=== PATIENT | female | born 1980 | race Caucasian/White ===

== ENCOUNTER 2016-03-04 12:50 | Outpatient (RCR) | payer OTHER ==
--- OUTSIDE RECORDS SUMMARY | 2015-12-19 13:04 | XMS REPORT | Continuity of Care Document ---
Author Author [facility] Organization [facility] Address Unknown Phone Unavailable Care Team Providers Care Stock Associate Name Role Phone Tor Thurman PCP [phone] Source Comments Some departments are not documenting in the electronic medical record. If you do not see the information that you expected, contact Release of Information in the Health Information Management department at [phone] for further assistance in locating additional records.[facility] Active Allergies and Adverse Reactions Allergen Noted Date Severity Reactions Comments Penicillins 04/25/2015 Low UNKNOWN Current Medications Prescription Sig. Disp. Refills Start End Date Status Date levothyroxine (SYNTHROID) Take 100 mcg by mouth Active 100 mcg tablet daily. Active Problems Problem Noted Date GBM (glioblastoma multiforme) (HCC) 05/15/2015 Overview: 05/15/2015 Patient presented to OSH with severe headache over about 4 days. MRI showed large enhancing bilobed mass. She had had some disorientation over about 2 months which she thought was her thyroid medication. She has had GTR of a GBM and is here to discuss therapy. We discussed therapy, natural history of brain tumors, treatment options, toxicity and prognosis. She will get her care from Dr. Su and return if there are any questions or progression. I have recommended STUPP regimen with 1 year of temodar. L ast Assessment & Plan: We have reviewed the MRI--she has no symptoms and given the features and timing this most likely represents pseudo-progression related to her prior radiation/treatment and we have recommended proceeding with her planned maintenance Temodar. We have discussed with Penny and her and reviewed the images with her. They verbalize understanding and are in agreeement. Would recommend short interval follow up MRI head. The above plan was discussed and reviewed with the patient/family and they have received appropriate instructions and education and verbalize good understanding. Hypothyroidism (acquired) 04/26/2015 Graves disease 04/26/2015 H/O: hysterectomy 04/26/2015 Resolved Problems Problem Noted Date Resolved Date Cerebral edema 04/26/2015 05/21/2015 Midline shift of brain 04/26/2015 05/21/2015 Brain mass 04/25/2015 05/21/2015 Most Recent Encounters Date Type Specialty Providers Description 09/19/2015 Hospital Radiology Lorenzo Whitman MD Encounter 09/19/2015 Hospital Radiology Lorenzo Whitman MD Encounter 09/19/2015 Ancillary Oncology Lorenzo Whitman MD GBM ( glioblastoma Orders multiforme) (HCC) (Primary Dx) 09/18/2015 Screening Form Social History Tobacco Use Types Packs/Day Years Used Date Current Every Day Smoker 15 Quit: 11/23/2013 Smokeless Tobacco: Current User Alcohol Use Drinks/Week oz/Week Comments No Last Filed Vital Signs Vital Sign Reading Time Taken Blood Pressure 147/92 08/28/2015 1:08 PM CDT Pulse 99 08/28/2015 1:08 PM CDT Temperature 36.9 C (98.4 F) 08/28/2015 1:08 PM CDT Respiratory Rate 20 08/28/2015 1:08 PM CDT Height 1.626 m (5' 4") 08/28/2015 1:08 PM CDT Weight 65.59 kg (144 lb 9.6 oz) 08/28/2015 1:08 PM CDT Body Mass Index 24.81 08/28/2015 1:08 PM CDT Oxygen Saturation 97% 08/28/2015 1:08 PM CDT Plan of Care Health Maintenance Due Date Last Done Comments Physical (Comprehensive) 1985 Exam Pertussis Vaccine 1989 Tetanus Vaccine 1995 Cervical Cancer Screening 1999 Influenza Vaccine 11/14/2015 Results from Last 3 Months MRI BRAIN WO/W CONTRAST & PERFUSION (09/19/2015 3:29 PM) Impressions 1. Unchanged right parietal resection cavity with surrounding FLAIR hyperintensities and ill-defined linear enhancement about the resection cavity and right splenium of the corpus callosum. No new signal abnormality or enhancement. 2. No elevated cerebral blood volume within the right parietal region of interest. Leading consideration of the enhancing soft tissue is treatment- related effects as opposed to true tumor progression. Close continued follow-up is suggested. Finalized by HOSSEIN SWANSON M.D. on 09/19/2015 4:33 PM. Dictated by HOSSEIN SWANSON M.D. on 09/19/2015 4:23 PM. Narrative MRI BRAIN WO/W CONTRAST & PERFUSION Clinical indication: f/u glioblastoma. Technique: Pre and postcontrast MRI of the brain was performed. Additional dynamic susceptibility contrast perfusion imaging was performed with postprocessing performed on a separate workstation. Comparison: Outside MRI from August 13, 2015 Findings: There is redemonstration of prior right parietal mass resection cavity with ill- defined linear enhancement about the resection cavity as well as within the right splenium of the corpus callosum. Unchanged from the prior examination. The surrounding FLAIR hyperintensities are also unchanged within this region. No new parietal signal abnormality or mass effect is identified. There is no evidence recent ischemic infarct or intracranial hemorrhage. The major intracranial flow voids are preserved. Globes and orbits appear normal. The paranasal sinuses and mastoid air cells are clear. Perfusion imaging shows no elevated cerebral blood volume within the region of the surgical cavity or enhancement. Procedure Note Interface, Radiant Results - [facility] Sep 19, 2015 4:36 PM CDT MRI BRAIN WO/W CONTRAST & PERFUSION Clinical indication: f/u glioblastoma. Technique: Pre and postcontrast MRI of the brain was performed. Additional dynamic susceptibility contrast perfusion imaging was performed with postprocessing performed on a separate workstation. Comparison: Outside MRI from August 13, 2015 Findings: There is redemonstration of prior right parietal mass resection cavity with ill- defined linear enhancement about the resection cavity as well as within the right splenium of the corpus callosum. Unchanged from the prior examination. The surrounding FLAIR hyperintensities are also unchanged within this region. No new parietal signal abnormality or mass effect is identified. There is no evidence recent ischemic infarct or intracranial hemorrhage. The major intracranial flow voids are preserved. Globes and orbits appear normal. The paranasal sinuses and mastoid air cells are clear. Perfusion imaging shows no elevated cerebral blood volume within the region of the surgical cavity or enhancement. IMPRESSION 1. Unchanged right parietal resection cavity with surrounding FLAIR hyperintensities and ill-defined linear enhancement about the resection cavity and right splenium of the corpus callosum. No new signal abnormality or enhancement. 2. No elevated cerebral blood volume within the right parietal region of interest. Leading consideration of the enhancing soft tissue is treatment- related effects as opposed to true tumor progression. Close continued follow-up is suggested. Finalized by HOSSENI SWANSON M.D. on 09/19/2015 4:33 PM. Dictated by HOSSEIN SWANSON M.D. on 09/19/2015 4:23 PM.
[2015-12-19 13:09] LABS: BASOPHILS % (AUTO) 0 % (0-10); EOSINOPHILS # (AUTO) 0.2 10^3/uL (0.0-0.3); EOSINOPHILS % (AUTO) 3 % (0-10); LYMPHOCYTES # (AUTO) 1.5 X 10^3 (1.0-4.0); LYMPHOCYTES % (AUTO) 21 % (12-44); MEAN CORPUSCULAR HEMOGLOBIN 29 PG (25-34); MEAN CORPUSCULAR HGB CONC 35 G/DL (32-36); MEAN CORPUSCULAR VOLUME 83 FL (80-99); MEAN PLATELET VOLUME 9.9 FL (7.4-10.4); MONOCYTES # (AUTO) 0.5 X 10^3 (0.0-1.0); MONOCYTES % (AUTO) 6 % (0-12); NEUTROPHILS % (AUTO) 69 % (42-75); PLATELET COUNT 231 10^3/uL (130-400); RED BLOOD COUNT 4.84 10^6/uL (4.35-5.85); RED CELL DISTRIBUTION WIDTH 14.6 % (10.0-14.5); WHITE BLOOD COUNT 7.2 10^3/uL (4.3-11.0)
[2015-12-19 13:54] LABS: ANION GAP 12 MMOL/L (5-14); BLOOD UREA NITROGEN 9 MG/DL (7-18); BUN/CREATININE RATIO 11; CALCIUM 9.5 MG/DL (8.5-10.1); CARBON DIOXIDE 21 MMOL/L (21-32); CHLORIDE 104 MMOL/L (98-107); CREATININE SERUM 0.83 MG/DL (0.60-1.30); GFR ESTIMATED > 60; GLUCOSE 179 MG/DL (70-105); POTASSIUM 4.2 MMOL/L (3.6-5.0); SODIUM 137 MMOL/L (135-145)
[2016-01-02 14:55] LABS: BASOPHILS # (AUTO) 0.1 10^3/uL (0.0-0.1); BASOPHILS % (AUTO) 1 % (0-10); EOSINOPHILS # (AUTO) 0.3 10^3/uL (0.0-0.3); EOSINOPHILS % (AUTO) 4 % (0-10); LYMPHOCYTES # (AUTO) 1.8 X 10^3 (1.0-4.0); LYMPHOCYTES % (AUTO) 25 % (12-44); MEAN CORPUSCULAR HEMOGLOBIN 28 PG (25-34); MEAN CORPUSCULAR HGB CONC 34 G/DL (32-36); MEAN CORPUSCULAR VOLUME 83 FL (80-99); MEAN PLATELET VOLUME 9.9 FL (7.4-10.4); MONOCYTES # (AUTO) 0.4 X 10^3 (0.0-1.0); MONOCYTES % (AUTO) 6 % (0-12); NEUTROPHILS # (AUTO) 4.6 X 10^3 (1.8-7.8); NEUTROPHILS % (AUTO) 65 % (42-75); PLATELET COUNT 240 10^3/uL (130-400); RED BLOOD COUNT 4.82 10^6/uL (4.35-5.85); RED CELL DISTRIBUTION WIDTH 14.6 % (10.0-14.5); WHITE BLOOD COUNT 7.1 10^3/uL (4.3-11.0)
[2016-01-02 15:19] LABS: ALANINE AMINOTRANSFERASE 19 U/L (0-55); ALBUMIN 4.4 G/DL (3.2-4.5); ANION GAP 10 MMOL/L (5-14); ASPARTATE AMINO TRANSFERASE 19 U/L (5-34); BILIRUBIN,TOTAL 0.3 MG/DL (0.1-1.0); BLOOD UREA NITROGEN 6 MG/DL (7-18); BUN/CREATININE RATIO 7; CALCIUM 9.1 MG/DL (8.5-10.1); CARBON DIOXIDE 26 MMOL/L (21-32); CHLORIDE 103 MMOL/L (98-107); CREATININE SERUM 0.84 MG/DL (0.60-1.30); GFR ESTIMATED > 60; GLUCOSE 132 MG/DL (70-105); POTASSIUM 3.9 MMOL/L (3.6-5.0); SODIUM 139 MMOL/L (135-145); TOTAL PROTEIN 6.8 G/DL (6.4-8.2)
[2016-01-29 10:06] LABS: BASOPHILS # (AUTO) 0.1 10^3/uL (0.0-0.1); BASOPHILS % (AUTO) 1 % (0-10); EOSINOPHILS # (AUTO) 0.3 10^3/uL (0.0-0.3); EOSINOPHILS % (AUTO) 4 % (0-10); LYMPHOCYTES # (AUTO) 1.7 X 10^3 (1.0-4.0); LYMPHOCYTES % (AUTO) 29 % (12-44); MEAN CORPUSCULAR HEMOGLOBIN 30 PG (25-34); MEAN CORPUSCULAR HGB CONC 35 G/DL (32-36); MEAN CORPUSCULAR VOLUME 85 FL (80-99); MEAN PLATELET VOLUME 9.5 FL (7.4-10.4); MONOCYTES # (AUTO) 0.4 X 10^3 (0.0-1.0); MONOCYTES % (AUTO) 7 % (0-12); NEUTROPHILS # (AUTO) 3.6 X 10^3 (1.8-7.8); NEUTROPHILS % (AUTO) 59 % (42-75); PLATELET COUNT 270 10^3/uL (130-400); RED BLOOD COUNT 4.78 10^6/uL (4.35-5.85); RED CELL DISTRIBUTION WIDTH 14.8 % (10.0-14.5)
[2016-01-29 10:55] LABS: ANION GAP 10 MMOL/L (5-14); BLOOD UREA NITROGEN 9 MG/DL (7-18); BUN/CREATININE RATIO 11; CARBON DIOXIDE 26 MMOL/L (21-32); CHLORIDE 103 MMOL/L (98-107); CREATININE SERUM 0.83 MG/DL (0.60-1.30); POTASSIUM 4.2 MMOL/L (3.6-5.0); SODIUM 139 MMOL/L (135-145)
[2016-01-29 10:56] LABS: ALANINE AMINOTRANSFERASE 18 U/L (0-55); ALBUMIN 4.5 G/DL (3.2-4.5); ASPARTATE AMINO TRANSFERASE 21 U/L (5-34); BILIRUBIN,TOTAL 0.4 MG/DL (0.1-1.0); CALCIUM 9.7 MG/DL (8.5-10.1); GFR ESTIMATED > 60; GLUCOSE 86 MG/DL (70-105); LACTATE DEHYDROGENASE 182 U/L (125-220); TOTAL PROTEIN 6.9 G/DL (6.4-8.2)
[~2016-03-04 12:50] MED LIST: ACHYD1T PO; DCS100C PO; IBP800T PO; LEVO100T7 PO
[2016-03-04 13:19] LABS: BASOPHILS % (AUTO) 0 % (0-10); EOSINOPHILS # (AUTO) 0.2 10^3/uL (0.0-0.3); EOSINOPHILS % (AUTO) 2 % (0-10); LYMPHOCYTES # (AUTO) 1.6 X 10^3 (1.0-4.0); LYMPHOCYTES % (AUTO) 24 % (12-44); MEAN CORPUSCULAR HEMOGLOBIN 30 PG (25-34); MEAN CORPUSCULAR HGB CONC 34 G/DL (32-36); MEAN CORPUSCULAR VOLUME 88 FL (80-99); MEAN PLATELET VOLUME 9.4 FL (7.4-10.4); MONOCYTES # (AUTO) 0.4 X 10^3 (0.0-1.0); MONOCYTES % (AUTO) 6 % (0-12); NEUTROPHILS # (AUTO) 4.6 X 10^3 (1.8-7.8); NEUTROPHILS % (AUTO) 68 % (42-75); PLATELET COUNT 258 10^3/uL (130-400); RED BLOOD COUNT 4.09 10^6/uL (4.35-5.85); RED CELL DISTRIBUTION WIDTH 13.7 % (10.0-14.5); WHITE BLOOD COUNT 6.9 10^3/uL (4.3-11.0)
[2016-03-04 13:56] LABS: ALANINE AMINOTRANSFERASE 18 U/L (0-55); ALBUMIN 4.1 G/DL (3.2-4.5); ANION GAP 7 MMOL/L (5-14); ASPARTATE AMINO TRANSFERASE 21 U/L (5-34); BILIRUBIN,TOTAL 0.3 MG/DL (0.1-1.0); BLOOD UREA NITROGEN 8 MG/DL (7-18); BUN/CREATININE RATIO 11; CALCIUM 8.9 MG/DL (8.5-10.1); CARBON DIOXIDE 27 MMOL/L (21-32); CHLORIDE 104 MMOL/L (98-107); CREATININE SERUM 0.73 MG/DL (0.60-1.30); GFR ESTIMATED > 60; GLUCOSE 102 MG/DL (70-105); POTASSIUM 3.7 MMOL/L (3.6-5.0); SODIUM 138 MMOL/L (135-145); TOTAL PROTEIN 6.6 G/DL (6.4-8.2)
== END 2016-03-18 | disposition home or self-care (01) ==
LOC: ONC 12:50
PROVIDERS: ATTEND Internal Medicine Hematology & Oncology
DX: C71.3 Malignant neoplasm of parietal lobe (principal); E03.9 Hypothyroidism, unspecified; F17.210 Nicotine dependence, cigarettes, uncomplicated; Z79.899 Other long term (current) drug therapy
CPT/HCPCS: 36415; 80048; 80053; 83615; 85025; 99213

== ENCOUNTER → 2016-06-03 | Outpatient (CLI) | payer OTHER ==
[~2016-06-03] MED LIST changes: +GADOBUTROL 7.5 MMOL/7.5 ML (GADAVIST) VIAL IV ONE
--- NOTE | 2016-06-03 17:16 | Diagnostic Imaging Report ---
PROCEDURE: MR imaging of the brain with and without contrast. TECHNIQUE: Multiplanar, multisequence MR imaging of the brain was performed with and without contrast. INDICATION: Glioblastoma multiforme status post 2 resections, last one in February 2016. 6 mL of Gadovist is administered intravenously. FINDINGS: There is diffusion restriction seen anterior to the right parietal resection cavity. This is associated with increased soft tissue fullness and T2 and FLAIR signal abnormality. This is associated with postcontrast enhancement with maximum axial dimensions of 3 x 2.1 cm and craniocaudally 2.8 cm. The enhancing lesion extends to the ependymal lining of the right occipital horn and near the right side aspect of the splenium of the corpus callosum. This is concerning for tumor recurrence. There is thickening of the extra-axial soft tissue enhancement along the anterosuperior aspect of the resection cavity also concerning for tumor. There is no hydrocephalus. There is no enhancing lesion in the left hemisphere or in the cerebellum or the brainstem. The pituitary gland is normal in size with no hypothalamic or pineal region mass. Outside study dated 02/14/2016 is obtained and demonstrates smaller nodular areas of enhancement measuring 9 mm anteriorly and 2 x 1.2 cm anteromedially. There is significant enlargement of the areas of enhancement mostly anterior to the resection cavity at this time with minimal enlargement in the medial enhancing component and new extension along the lateral superior aspect, probably dural based, as discussed above is concerning for tumor recurrence. IMPRESSION: Enlarging enhancing lesions with the most prominent component measuring 3 cm located anterior to the resection cavity in the right parietal region suggestive of tumor progression. Dictated by: Dictated on workstation # [id number]
== END ==
LOC: RAD 08:48
PROVIDERS: ATTEND Nurse Practitioner Adult Health
DX: C71.3 Malignant neoplasm of parietal lobe (principal)
CPT/HCPCS: 70553

== ENCOUNTER 2016-06-16 14:06 | Outpatient (RCR) | payer OTHER ==
--- OUTSIDE RECORDS SUMMARY | 2016-03-19 09:01 | XMS REPORT | Continuity of Care Document ---
Author Author [facility] Organization [facility] Address Unknown Phone Unavailable Care Team Providers Care [employer] Manager Name Role Phone Tor Thurman PCP [phone] Source Comments Some departments are not documenting in the electronic medical record. If you do not see the information that you expected, contact Release of Information in the Health Information Management department at [phone] for further assistance in locating additional records.[facility] Active Allergies and Adverse Reactions No Known Allergies Current Medications Prescription Sig. Disp. Refills Start End Date Status Date levothyroxine (SYNTHROID) Take 88 mcg by mouth Active 88 mcg tablet daily 30 minutes before breakfast. acetaminophen (TYLENOL) Take 2 Tabs by mouth 0 02/15/20 Active 325 mg tablet every 4 hours as needed. 16 senna/docusate Take 1 Tab by mouth twice 0 02/15/20 Active (SENOKOT-S) 8.6/50 mg daily. As needed for 16 tablet constipation cetirizine (ZYRTEC) 10 mg Take 10 mg by mouth daily 02/24/20 Discontin tablet as needed for Allergy 16 ued symptoms. oxyCODONE (ROXICODONE, Take 1-2 Tabs by mouth 60 Tab 0 02/15/2003/03 Discontin OXY-IR) 5 mg tablet every 4 hours as needed 16 16 ued Earliest Fill Date: 02/15/16 levETIRAcetam (KEPPRA) Take 1 Tab by mouth twice 26 Tab 0 02/15/20 02/28/20 500 mg tablet daily for 13 days. 16 16 dexamethasone (DECADRON) Take with food. Taper 32 Tab 0 02/15/2003/03 Discontin 2 mg tablet schedule: 2 tabs every 6 16 16 ued hours thru today, then 2 tab every 8 hours x 2 days, then 2 tabs every 12 hours x 2 days, then 1 tab every 12 hours x 2 days, then 1/2 tab every 12 hours x 2 days then stop. Active Problems Problem Noted Date Cerebral edema (HCC) 02/18/2016 Brain compression (HCC) 02/18/2016 GBM (glioblastoma multiforme) (HCC) 02/15/2016 GBM (glioblastoma multiforme) (HCC) 05/15/2015 Overview: 05/15/2015 [...] STUPP regimen with 1 year of temodar. 02/04/2016 When seen in September she had MRI consistent with pseudoprogression. Has had progression of the enhancement so surgery is planned. If recurrent tumor is found she will go on Tocagen. If not she will stay on temodar. She is asymptomatic. KPS 100 although she had not returned to work since original diagnosis. She is more than 6 months since xrt. 03/03/2016 She went on Tocagen trial after her resection. She was randomized to control arm and that has to be done here. In light of the distance and it will be standard of care she has elected to go off study. I reviewed for them the standard therapy options and the toxicities. She will see Dr. Chirag Zamorano ast Assessment & Plan: We have reviewed [...] Recent Encounters Date Type Specialty Providers Description 03/03/2016 Office Visit Oncology Pamela Sams MD GBM (glioblastoma multiforme) (HCC) (Primary Dx) 03/03/2016 Office Visit Neurosurgery Faizan Humphreys MD GBM ( glioblastoma multiforme) (HCC) (Primary Dx); Cerebral edema (HCC); Brain compression (HCC) 03/03/2016 Documentation Oncology Pamela aSms MD 02/24/2016 Office Visit Radiation Therapy Jordan Espino MD GBM ( glioblastoma multiforme) (HCC) (Primary Dx) 02/19/2016 Telephone Oncology Pamela Sams MD Appointment 02/17/2016 Telephone Neurosurgery Yandel Wilks MD Follow-up Phone Call 02/13/2016 Screening Form 02/13/2016 Surgery Yandel Wilks MD RIGHT OCCIPITAL RE-DO CRANIOTOMY FOR RESECTION OF RECURRENT GLIOBLASTOMA MULTIFORME 02/12/2016 [facility] Yandel Wilks MD GBM (glioblastoma - Encounter multiforme) (HCC) 02/15/2016 02/12/2016 [facility] Yandel Wilks MD Glioblastoma (HCC) Encounter 02/12/2016 Screening Form 02/12/2016 Telephone Oncology Pamela Sams MD Research 02/08/2016 [facility] Radiology Yandel Wilks MD Encounter 02/05/2016 Screening Form 02/04/2016 Office Visit Oncology Pamela Sams MD GBM (glioblastoma multiforme) (HCC) (Primary Dx) 02/04/2016 Office Visit Neurosurgery Yandel Wilks MD GBM ( glioblastoma multiforme) (HCC) (Primary Dx) 02/04/2016 PAC Office Anesthesiology Yandel Wilks MD Encounter for blood Visit typing (Primary Dx) 02/04/2016 Documentation Oncology Pamela Sams MD 02/04/2016 Precert Oncology Pamela Sams MD 02/04/2016 Orders Only Oncology Pamela Sams MD GBM (glioblastoma multiforme) (HCC) (Primary Dx) 02/04/2016 Orders Only Neurosurgery Yandel Wilks MD Glioblastoma ( HCC) (Primary Dx) 02/04/2016 Anesthesia Philomena Salmon, Event ENTRY LEVEL PROJECT ENGINEER 02/03/2016 Orders Only Oncology Pamela Sams MD GBM (glioblastoma multiforme) (HCC) (Primary Dx) 01/31/2016 Hospital Yandel Wilks MD Encounter 01/31/2016 Orders Only Dutch Gilma J, ENTRY LEVEL PROJECT ENGINEER 01/30/2016 Telephone Oncology Pamela Sams MD Appointment 01/30/2016 Telephone Oncology Pamela Sams MD Research 01/29/2016 Telephone Oncology Yandel Wilks MD Research 01/29/2016 Prep for Case Neurosurgery Yandel Wliks MD 01/25/2016 Ancillary Radiology Outpatient, Radiologist Diagnosis unknown Orders (Primary Dx) 01/24/2016 Telephone Oncology Pamela Sams MD New Treatment Follow Up 01/23/2016 Hospital Radiology Encounter Social History Tobacco Use Types Packs/Day Years Used Date Current Every Day Smoker Cigarettes 0.5 15 Smokeless Tobacco: Never Used Alcohol Use Drinks/Week oz/Week Comments No Last Filed Vital Signs Vital Sign Reading Time Taken Blood Pressure 117/65 03/03/2016 12:18 PM PHYSICIAN CHIEF OF PATHOLOGY Pulse 81 03/03/2016 12:18 PM PHYSICIAN CHIEF OF PATHOLOGY Temperature 36.7 C (98 F) 03/03/2016 12:18 PM PHYSICIAN CHIEF OF PATHOLOGY Respiratory Rate 16 03/03/2016 12:18 PM PHYSICIAN CHIEF OF PATHOLOGY Height 1.626 m (5' 4.02") 03/03/2016 12:18 PM PHYSICIAN CHIEF OF PATHOLOGY Weight 60.147 kg (132 lb 9.6 oz) 03/03/2016 12:18 PM PHYSICIAN CHIEF OF PATHOLOGY Body Mass Index 22.75 03/03/2016 12:18 PM PHYSICIAN CHIEF OF PATHOLOGY Oxygen Saturation 100% 03/03/2016 12:18 PM PHYSICIAN CHIEF OF PATHOLOGY Plan of Care Health Maintenance Due Date Last Done Comments Physical (Comprehensive) 1985 Exam Pertussis Vaccine 1989 Tetanus Vaccine 1995 Cervical Cancer Screening 1999 Influenza Vaccine 11/14/2015 Procedures from Last 3 Months Procedure Name Priority Date/Time Associated Diagnosis Comments TELEMETRY STRIPS-SCAN 02/18/2016 Results for this 8:30 AM PHYSICIAN CHIEF OF PATHOLOGY procedure are in the results section. RIGHT OCCIPITAL RE-DO 02/13/2016 Glioblastoma (HCC) CRANIOTOMY FOR RESECTION 7:45 AM PHYSICIAN CHIEF OF PATHOLOGY OF RECURRENT GLIOBLASTOMA MULTIFORME Special Needs 01/30- MOVED FROM 02/03 TO 02/12, REQUEST [id number] START, PER CHANGE FORM Sofia SERRANO RN ([id number]) CONSULT IV THERAPY TEAM Routine 02/12/2016 6:23 PM PHYSICIAN CHIEF OF PATHOLOGY Results from Last 3 Months TELEMETRY STRIPS-SCAN (02/18/2016 8:30 AM) Narrative Ordered by an unspecified provider. PATHOLOGY INTEROPERATIVE REPORT SCAN (02/17/2016 4:06 PM) Narrative Ordered by an unspecified provider. BASIC METABOLIC PANEL (02/15/2016 6:07 AM)Only the most recent of 3 results within the time period is included. Component Value Range Sodium 139 137-147 MMOL/L Potassium 3.9 3.5-5.1 MMOL/L Chloride 108 98-110 MMOL/L CO2 23 21-30 MMOL/L Anion Gap 8 3-12 Glucose 117 (H) 70-100 MG/DL Blood Urea Nitrogen 11 7-25 MG/DL Creatinine 0.60 0.4-1.00 MG/DL Calcium 8.8 8.5-10.6 MG/DL eGFR Non >60Comment: >60 mL/min The eGFR is not validated for use in drug dosing adjustments. Continue to use estimated creatinine clearance per dosing reference text. Please contact the Clinical Pharmacist for questions. eGFR >60Comment: >60 mL/min The eGFR is not validated for use in drug dosing adjustments. Continue to use estimated creatinine clearance per dosing reference text. Please contact the Clinical Pharmacist for questions. Specimen Blood CBC AND DIFF (02/15/2016 6:07 AM)Only the most recent of 5 results within the time period is included. Component Value Range White Blood Cells 16.1 (H) 4.5-11.0 K/UL RBC 3.58 (L) 4.0-5.0 M/UL Hemoglobin 10.2 (L) 12.0-15.0 GM/DL Hematocrit 30.8 (L) 36-45 % MCV 86.2 80-100 FL MCH 28.6 26-34 PG MCHC 33.2 32.0-36.0 G/DL RDW 15.1 (H) 11-15 % Platelet Count 159 150-400 K/UL MPV 9.0 7-11 FL Neutrophils 87 (H) 41-77 % Lymphocytes 8 (L) 24-44 % Monocytes 5 4-12 % Eosinophils 0 0-5 % Basophils 0 0-2 % Absolute Neutrophil Count 14.10 (H) 1.8-7.0 K/UL Absolute Lymph Count 1.20 1.0-4.8 K/UL Absolute Monocyte Count 0.70 0-0.80 K/UL Absolute Eosinophil Count 0.00 0-0.45 K/UL Absolute Basophil Count 0.00 0-0.20 K/UL Specimen Blood MRI HEAD WO/W CONTRAST (02/14/2016 12:52 AM)Only the most recent of 3 results within the time period is included. Impressions Interval partial resection of right parieto-occipital mass with residual enhancement along the anterior and medial resection margins. Approved by Ebony Humphreys M.D. on 02/14/2016 9:24 AM By my electronic signature, I attest that I have personally reviewed the images for this examination and formulated the interpretations and opinions expressed in this report Finalized by HOSSEIN SWANSON M.D. on 02/14/2016 5:31 PM. Dictated by Ebony Humphreys M.D. on 02/14/2016 7:19 AM. Narrative EXAM: MRI BRAIN (LIMITED) HISTORY: Tocagen study, please do early as possible after 24 hour from last scan. Glioblastoma status post resection. TECHNIQUE: Multiplanar and multisequence MR imaging of the head was performed with IV contrast. CONTRAST: Multihance COMPARISON: MRI head February 12, 2016 FINDINGS: Interval redo right parieto-occipital craniotomy and further right parieto- occipital mass resection. There is minimal postoperative pneumocephalus with a trace amount of fluid deep to the craniotomy site. There is residual enhancement along the anterior and medial resection margins. No significant change in surrounding vasogenic edema. No midline shift or descending herniation. Persistent mild right maxillary sinus mucosal thickening. Procedure Note Interface, Radiant Results - WedFeb 14, 2016 5:34 PM PHYSICIAN CHIEF OF PATHOLOGY EXAM: MRI BRAIN (LIMITED) HISTORY: Tocagen study, please do early as possible after 24 hour from last scan. Glioblastoma status post resection. TECHNIQUE: Multiplanar and multisequence MR imaging of the head was performed with IV contrast. CONTRAST: Multihance COMPARISON: MRI head February 12, 2016 FINDINGS: Interval redo right parieto-occipital craniotomy and further right parieto- occipital mass resection. There is minimal postoperative pneumocephalus with a trace amount of fluid deep to the craniotomy site. There is residual enhancement along the anterior and medial resection margins. No significant change in surrounding vasogenic edema. No midline shift or descending herniation. Persistent mild right maxillary sinus mucosal thickening. IMPRESSION Interval partial resection of right parieto-occipital mass with residual enhancement along the anterior and medial resection margins. Approved by Ebony Humphreys M.D. on 02/14/2016 9:24 AM By my electronic signature, I attest that I have personally reviewed the images for this examination and formulated the interpretations and opinions expressed in this report Finalized by HOSSEIN SWANSON M.D. on 02/14/2016 5:31 PM. Dictated by Ebony Humphreys M.D. on 02/14/2016 7:19 AM. SURGICAL PATHOLOGY (02/13/2016 11:38 AM) Component Value Range PATHOLOGY REPORT [facility] [email or web address] Macy Tiwari MD, PhD, Director of Anatomic Pathology Department of Pathology and Laboratory Medicine [address] [place] [id number] Surgical Pathology Office: [phone] SURGICAL PATHOLOGY REPORT NAME: PENNY CERDA SURG PATH #: [id number] MR #: [id number] SPECIMEN CLASS: SR BILLING #: [id number] ALT ID #: LOCATION: DISCHARGED DATE OF PROCEDURE: 02/13/2016 AGE: 35 SEX: F DATE RECEIVED: 02/13/2016 : 1980 TIME RECEIVED: 11:38 PHYSICIAN: YANDEL WILKS DATE OF REPORT: 02/17/2016 COPY TO: DATE OF PRINTIN02/17/2016 ################################################## ###################### Final Diagnosis: Right occipital craniotomy for resection of recurrent tumor: A. 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 (Brain), brain tumor for study: HIGH-GRADE ASTROCYTOMA, RECURRENT (smears only) C. 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 At this time, only the IDH1-R132H mutation has been excluded based on immunohistochemical testing of the patient's original tumor ([id number]). BRAIN /Resection Specimen Type/Procedure: Resection, right occipital craniotomy Specimen Size: See gross description Laterality: Right Tumor Site: Brain/cerebrum Histologic Type and Grade: Astrocytic Tumors Glioblastoma (WHOgradeIV) Histologic Grade (WHO histologic grade): WHO grade IV The pathologic stage assigned here should be regarded as provisional, as it reflects only current pathologic data and does not incorporate full knowledge of the patient's clinical status and/or prior pathology. REFERENCE: WHO Classification of Tumours of the Central Nervous System (2016, IARC press, [place]) Attestation: By this signature, I attest that I have personally formulated the final interpretation expressed in this report and that the above diagnosis is based upon my examination of the slides and/or other material indicated in this report. +++Electronically Signed Out By+++ ksw/02/13/2016 Interpreted by: Shaye Mueller MD, Attending Physician 02/17/2016 ################################################## ###################### Material Received: A: brain tumor B: brain tumor for study C: tumor History: 35 year-old woman with a history of glioblastoma ([id number].) Microscopic Description: Mitotic activity: present Microvascular proliferation: present, frequent Necrosis: present Pseudopalisading necrosis: present Biomarker block: C5, C4, or A2 Gross Description: A. Received fresh labeled with the patient's name and "brain tumor"is a 0.5 x 0.3 x 0.2 cm yellow-fritz sample of neural tissue. The specimen is submitted for frozen/smears as A1FS. The residual specimen is submitted as follows: A1FS Frozen section remnant A2 The remainder of the specimen (ads) B. Received fresh in saline is a 2.2 x 2.0 x 0.9 cm aggregate of white-pink and fritz-red neural tissue fragments. Small foci are sampled for B1 smears only. The residual fresh tissue is reserved for the [facility] study clinical trial. (ads) C. Received in formalin, labeled with the patient's name and "brain tumor" is a 4.1 x 2.9 x 1.8 cm aggregate of fritz-white soft neural tissue. Regional Education Manager sections of specimen are submitted in cassettes C1-C5. (ads) as/02/13/2016 Shaye Mueller MD, Attending Physician Intraoperative Consultation: A1FS, smears, brain, "brain tumor", biopsy: High-grade astrocytoma B1, smears only, brain, "brain tumor for study", biopsy: High-grade astrocytoma Note: A cytological smear/squash was performed on different areas from the specimens for optimal evaluation. Shaye Mueller MD, Attending Physician LACTIC ACID (BG - RAPID LACTATE) (02/13/2016 10:45 AM) Component Value Range Lactic Acid,BG 0.7 0.5-2.0 MMOL/L OSMOLALITY (02/13/2016 10:45 AM) Component Value Range Osmolality 296 280-307 MOSMOL/KG Specimen Blood POTASSIUM, BG (02/13/2016 10:45 AM) Component Value Range Potassium 3.9 3.5-5.1 MMOL/L Specimen Blood SODIUM,BG (02/13/2016 10:45 AM) Component Value Range Sodium 137 137-147 MMOL/L Specimen Blood IONIZED CALCIUM,BG (02/13/2016 10:45 AM) Component Value Range Ionized Calcium 1.09 1.0-1.3 MMOL/L Specimen Blood GLUCOSE,BG (02/13/2016 10:45 AM) Component Value Range Glucose 108 (H) 70-100 MG/DL Specimen Blood BLOOD GASES, ARTERIAL (02/13/2016 10:45 AM) Component Value Range pH-Arterial 7.35 7.35-7.45 pCO2-Arterial 33 (L) 35-45 MMHG pO2-Arterial 208 (H) 80-100 MMHG Base Deficit-Arterial 6.2 MMOL/L O2 Sat-Arterial 99.5 (H) 95-99 % Hforrqpcfkn-EFZ-Grm 19.4 (L) 21-28 MMOL/L Specimen Blood, arterial - Blood HEMOGLOBIN & HEMATOCRIT, BG (02/13/2016 10:45 AM) Component Value Range Hemoglobin BG 11.2 (L) 12.0-15.0 GM/DL Hematocrit BG 34.5 (L) 36-45 % Specimen Blood ANESTHESIA ARTERIAL LINE INSERTION (02/13/2016 8:50 AM) Daniel Venegas MD 02/13/20168:50 AM Anesthesia Procedure: Arterial Line Placement A-LINE INSERTION Date/Time: 02/13/2016 8:05 AM Patient location: OR Indications: hemodynamic monitoring Staff Anesthesiologist: JONATHAN POTTER Performed by: JENNY VENEGAS Preprocedure checklist performed: 2 patient identifiers, risks & benefits discussed, patient evaluated, timeout performed, consent obtained, patient being monitored and sterile drape Sterile technique: - Proper hand washing - Cap, mask - Sterile gloves - Skin prep for antisepsis Arterial Line Procedure Patient sedated: yes (see MAR) Sedation type: general; Artery prepped with chlorhexidine; skin prep agent completely dried prior to procedure. Location: radial artery Technique: palpation and anatomical landmarks Needle gauge: 20 G Number of attempts: 3 Procedure Outcome Catheter secured with adhesive dressing applied Events: hematoma during insertion and skin intact, warm, and dry Observation: pt tolerated well TYPE & CROSSMATCH (02/12/2016 7:05 PM) Component Value Range Units Ordered 0 Crossmatch Expires 02/15/2016 Record Check FOUND ABO/RH(D) O NEG Antibody Screen NEG Electronic Crossmatch YES Specimen Blood PTT (APTT) (02/12/2016 7:05 PM) Component Value Range APTT 29.7 24.0-40.0 SEC Specimen Blood PROTIME INR (PT) (02/12/2016 7:05 PM) Component Value Range INR 1.0 0.8-1.2 Specimen Blood PHOSPHORUS (02/12/2016 7:05 PM) Component Value Range Phosphorus 3.9 2.0-4.0 MG/DL Specimen Blood MAGNESIUM (02/12/2016 7:05 PM) Component Value Range Magnesium 2.2Comment: SLT HEMOLYSIS 1.6-2.6 MG/DL Specimen Blood COMPREHENSIVE METABOLIC PANEL (02/12/2016 7:05 PM)Only the most recent of 2 results within the time period is included. Component Value Range Sodium 138 137-147 MMOL/L Potassium 4.3Comment: SLT HEMOLYSIS 3.5-5.1 MMOL/L Chloride 107 98-110 MMOL/L Glucose 94 70-100 MG/DL Blood Urea Nitrogen 11 7-25 MG/DL Creatinine 0.81 0.4-1.00 MG/DL Calcium 8.9 8.5-10.6 MG/DL Total Protein 7.2 6.0-8.0 G/DL Total Bilirubin 0.4 0.3-1.2 MG/DL Albumin 4.4 3.5-5.0 G/DL Alk Phosphatase 74 25-110 U/L AST (SGOT) 24 7-40 U/L CO2 21 21-30 MMOL/L ALT (SGPT) 12 7-56 U/L Anion Gap 10 3-12 eGFR Non >60Comment: >60 mL/min The eGFR is not validated for use in drug dosing adjustments. Continue to use estimated creatinine clearance per dosing reference text. Please contact the Clinical Pharmacist for questions. eGFR >60Comment: >60 mL/min The eGFR is not validated for use in drug dosing adjustments. Continue to use estimated creatinine clearance per dosing reference text. Please contact the Clinical Pharmacist for questions. Specimen Blood TYPE & SCREEN (NOT CROSSMATCH ELIGIBLE) (02/04/2016 3:42 PM) Component Value Range ABO/RH(D) O NEG Antibody Screen NEG Blood Component Type RED CELL GROUP Specimen Blood, venous - Blood HIV AB SCREEN(1 AND 2) (02/04/2016 3:28 PM) Component Value Range HIV 1 and 2 AG AB Screen NEG NEG-NEG Specimen Blood MRI HEAD EXTERNAL IMAGING (01/23/2016) Narrative This order has been auto finalized and does not contain a result.
[2016-04-02 09:02] LABS: BASOPHILS # (AUTO) 0.1 10^3/uL (0.0-0.1); BASOPHILS % (AUTO) 1 % (0-10); EOSINOPHILS # (AUTO) 0.2 10^3/uL (0.0-0.3); EOSINOPHILS % (AUTO) 2 % (0-10); LYMPHOCYTES # (AUTO) 2.5 X 10^3 (1.0-4.0); LYMPHOCYTES % (AUTO) 24 % (12-44); MEAN CORPUSCULAR HEMOGLOBIN 29 PG (25-34); MEAN CORPUSCULAR HGB CONC 35 G/DL (32-36); MEAN CORPUSCULAR VOLUME 84 FL (80-99); MEAN PLATELET VOLUME 9.6 FL (7.4-10.4); MONOCYTES # (AUTO) 1.2 X 10^3 (0.0-1.0); MONOCYTES % (AUTO) 11 % (0-12); NEUTROPHILS # (AUTO) 6.5 X 10^3 (1.8-7.8); NEUTROPHILS % (AUTO) 62 % (42-75); PLATELET COUNT 325 10^3/uL (130-400); RED BLOOD COUNT 4.66 10^6/uL (4.35-5.85); WHITE BLOOD COUNT 10.5 10^3/uL (4.3-11.0)
[2016-04-02 09:42] LABS: ALANINE AMINOTRANSFERASE 18 U/L (0-55); ALBUMIN 4.1 G/DL (3.2-4.5); ANION GAP 12 MMOL/L (5-14); ASPARTATE AMINO TRANSFERASE 14 U/L (5-34); BILIRUBIN,TOTAL 0.3 MG/DL (0.1-1.0); BLOOD UREA NITROGEN 10 MG/DL (7-18); BUN/CREATININE RATIO 12; CARBON DIOXIDE 22 MMOL/L (21-32); CHLORIDE 103 MMOL/L (98-107); CREATININE SERUM 0.82 MG/DL (0.60-1.30); GFR ESTIMATED > 60; GLUCOSE 84 MG/DL (70-105); SODIUM 137 MMOL/L (135-145); TOTAL PROTEIN 6.5 G/DL (6.4-8.2)
[2016-04-02 10:02] LABS: THYROID STIMULATING HORMONE 9.18 UIU/ML (0.35-4.94)
[2016-04-15 09:53] LABS: BASOPHILS # (AUTO) 0.1 10^3/uL (0.0-0.1); BASOPHILS % (AUTO) 1 % (0-10); EOSINOPHILS # (AUTO) 0.2 10^3/uL (0.0-0.3); EOSINOPHILS % (AUTO) 3 % (0-10); LYMPHOCYTES # (AUTO) 1.5 X 10^3 (1.0-4.0); LYMPHOCYTES % (AUTO) 21 % (12-44); MEAN CORPUSCULAR HEMOGLOBIN 29 PG (25-34); MEAN CORPUSCULAR HGB CONC 35 G/DL (32-36); MEAN CORPUSCULAR VOLUME 84 FL (80-99); MEAN PLATELET VOLUME 9.9 FL (7.4-10.4); MONOCYTES # (AUTO) 0.5 X 10^3 (0.0-1.0); MONOCYTES % (AUTO) 7 % (0-12); NEUTROPHILS # (AUTO) 4.9 X 10^3 (1.8-7.8); NEUTROPHILS % (AUTO) 68 % (42-75); PLATELET COUNT 230 10^3/uL (130-400); RED BLOOD COUNT 4.53 10^6/uL (4.35-5.85); RED CELL DISTRIBUTION WIDTH 12.9 % (10.0-14.5); WHITE BLOOD COUNT 7.2 10^3/uL (4.3-11.0)
[2016-04-15 10:01] LABS: BILIRUBIN,URINE NEGATIVE (NEGATIVE); KETONES,URINE NEGATIVE (NEGATIVE); LEUKOCYTE ESTERASE ,URINE 1+ (NEGATIVE); NITRITE,URINE NEGATIVE (NEGATIVE); PH,URINE 7 (5-9); PROTEIN,URINE NEGATIVE (NEGATIVE); UROBILINOGEN,URINE NORMAL (NORMAL)
[2016-04-15 10:26] LABS: ALANINE AMINOTRANSFERASE 14 U/L (0-55); ALBUMIN 4.2 G/DL (3.2-4.5); ANION GAP 11 MMOL/L (5-14); ASPARTATE AMINO TRANSFERASE 18 U/L (5-34); BILIRUBIN,TOTAL 0.3 MG/DL (0.1-1.0); BLOOD UREA NITROGEN 7 MG/DL (7-18); BUN/CREATININE RATIO 9; CALCIUM 9.3 MG/DL (8.5-10.1); CARBON DIOXIDE 22 MMOL/L (21-32); CHLORIDE 103 MMOL/L (98-107); CREATININE SERUM 0.78 MG/DL (0.60-1.30); GFR ESTIMATED > 60; GLUCOSE 114 MG/DL (70-105); POTASSIUM 4.1 MMOL/L (3.6-5.0); SODIUM 136 MMOL/L (135-145); TOTAL PROTEIN 6.6 G/DL (6.4-8.2)
[2016-04-29 09:11] LABS: BASOPHILS % (AUTO) 1 % (0-10); EOSINOPHILS # (AUTO) 0.1 10^3/uL (0.0-0.3); EOSINOPHILS % (AUTO) 2 % (0-10); LYMPHOCYTES # (AUTO) 1.7 X 10^3 (1.0-4.0); LYMPHOCYTES % (AUTO) 29 % (12-44); MEAN CORPUSCULAR HEMOGLOBIN 28 PG (25-34); MEAN CORPUSCULAR HGB CONC 33 G/DL (32-36); MEAN CORPUSCULAR VOLUME 85 FL (80-99); MONOCYTES # (AUTO) 0.5 X 10^3 (0.0-1.0); MONOCYTES % (AUTO) 9 % (0-12); NEUTROPHILS # (AUTO) 3.4 X 10^3 (1.8-7.8); NEUTROPHILS % (AUTO) 59 % (42-75); PLATELET COUNT 249 10^3/uL (130-400); RED BLOOD COUNT 4.51 10^6/uL (4.35-5.85); RED CELL DISTRIBUTION WIDTH 12.9 % (10.0-14.5); WHITE BLOOD COUNT 5.7 10^3/uL (4.3-11.0)
[2016-04-29 09:34] LABS: ALANINE AMINOTRANSFERASE 10 U/L (0-55); ANION GAP 9 MMOL/L (5-14); ASPARTATE AMINO TRANSFERASE 14 U/L (5-34); BILIRUBIN,TOTAL 0.3 MG/DL (0.1-1.0); BLOOD UREA NITROGEN 8 MG/DL (7-18); BUN/CREATININE RATIO 10; CALCIUM 8.9 MG/DL (8.5-10.1); CARBON DIOXIDE 21 MMOL/L (21-32); CHLORIDE 107 MMOL/L (98-107); CREATININE SERUM 0.78 MG/DL (0.60-1.30); GFR ESTIMATED > 60; GLUCOSE 107 MG/DL (70-105); POTASSIUM 4.2 MMOL/L (3.6-5.0); SODIUM 137 MMOL/L (135-145); TOTAL PROTEIN 6.3 G/DL (6.4-8.2)
[2016-04-29 09:45] LABS: BILIRUBIN,URINE NEGATIVE (NEGATIVE); KETONES,URINE NEGATIVE (NEGATIVE); LEUKOCYTE ESTERASE ,URINE NEGATIVE (NEGATIVE); NITRITE,URINE NEGATIVE (NEGATIVE); PH,URINE 6 (5-9); PROTEIN,URINE NEGATIVE (NEGATIVE); UROBILINOGEN,URINE NORMAL (NORMAL)
[2016-05-13 11:05] LABS: BASOPHILS # (AUTO) 0.1 10^3/uL (0.0-0.1); BASOPHILS % (AUTO) 1 % (0-10); EOSINOPHILS # (AUTO) 0.1 10^3/uL (0.0-0.3); EOSINOPHILS % (AUTO) 2 % (0-10); LYMPHOCYTES % (AUTO) 24 % (12-44); MEAN CORPUSCULAR HEMOGLOBIN 28 PG (25-34); MEAN CORPUSCULAR HGB CONC 34 G/DL (32-36); MEAN CORPUSCULAR VOLUME 83 FL (80-99); MEAN PLATELET VOLUME 9.7 FL (7.4-10.4); MONOCYTES # (AUTO) 0.6 X 10^3 (0.0-1.0); MONOCYTES % (AUTO) 7 % (0-12); NEUTROPHILS # (AUTO) 5.4 X 10^3 (1.8-7.8); NEUTROPHILS % (AUTO) 66 % (42-75); PLATELET COUNT 282 10^3/uL (130-400); RED BLOOD COUNT 4.87 10^6/uL (4.35-5.85); RED CELL DISTRIBUTION WIDTH 13.4 % (10.0-14.5); WHITE BLOOD COUNT 8.2 10^3/uL (4.3-11.0)
[2016-05-13 11:37] LABS: ALANINE AMINOTRANSFERASE 21 U/L (0-55); ALBUMIN 4.3 G/DL (3.2-4.5); ANION GAP 13 MMOL/L (5-14); ASPARTATE AMINO TRANSFERASE 22 U/L (5-34); BILIRUBIN,TOTAL 0.4 MG/DL (0.1-1.0); BLOOD UREA NITROGEN 10 MG/DL (7-18); BUN/CREATININE RATIO 13; CALCIUM 9.3 MG/DL (8.5-10.1); CARBON DIOXIDE 22 MMOL/L (21-32); CHLORIDE 101 MMOL/L (98-107); GFR ESTIMATED > 60; GLUCOSE 102 MG/DL (70-105); POTASSIUM 4.3 MMOL/L (3.6-5.0); SODIUM 136 MMOL/L (135-145); TOTAL PROTEIN 6.8 G/DL (6.4-8.2)
[2016-05-27 09:12] LABS: BASOPHILS # (AUTO) 0.1 10^3/uL (0.0-0.1); BASOPHILS % (AUTO) 1 % (0-10); EOSINOPHILS # (AUTO) 0.1 10^3/uL (0.0-0.3); EOSINOPHILS % (AUTO) 2 % (0-10); LYMPHOCYTES # (AUTO) 1.6 X 10^3 (1.0-4.0); LYMPHOCYTES % (AUTO) 27 % (12-44); MEAN CORPUSCULAR HEMOGLOBIN 28 PG (25-34); MEAN CORPUSCULAR HGB CONC 35 G/DL (32-36); MEAN CORPUSCULAR VOLUME 82 FL (80-99); MEAN PLATELET VOLUME 9.9 FL (7.4-10.4); MONOCYTES # (AUTO) 0.6 X 10^3 (0.0-1.0); MONOCYTES % (AUTO) 9 % (0-12); NEUTROPHILS # (AUTO) 3.7 X 10^3 (1.8-7.8); NEUTROPHILS % (AUTO) 61 % (42-75); PLATELET COUNT 250 10^3/uL (130-400); RED BLOOD COUNT 5.35 10^6/uL (4.35-5.85); RED CELL DISTRIBUTION WIDTH 13.8 % (10.0-14.5)
[2016-05-27 09:20] LABS: BILIRUBIN,URINE NEGATIVE (NEGATIVE); KETONES,URINE NEGATIVE (NEGATIVE); LEUKOCYTE ESTERASE ,URINE NEGATIVE (NEGATIVE); NITRITE,URINE NEGATIVE (NEGATIVE); PH,URINE 6.5 (5-9); PROTEIN,URINE NEGATIVE (NEGATIVE); UROBILINOGEN,URINE NORMAL (NORMAL)
[2016-05-27 09:40] LABS: ALANINE AMINOTRANSFERASE 15 U/L (0-55); ALBUMIN 4.6 G/DL (3.2-4.5); ANION GAP 12 MMOL/L (5-14); ASPARTATE AMINO TRANSFERASE 19 U/L (5-34); BILIRUBIN,TOTAL 0.5 MG/DL (0.1-1.0); CALCIUM 9.9 MG/DL (8.5-10.1); CARBON DIOXIDE 24 MMOL/L (21-32); CHLORIDE 100 MMOL/L (98-107); CREATININE SERUM 0.81 MG/DL (0.60-1.30); GFR ESTIMATED > 60; GLUCOSE 87 MG/DL (70-105); POTASSIUM 4.7 MMOL/L (3.6-5.0); SODIUM 136 MMOL/L (135-145); TOTAL PROTEIN 7.4 G/DL (6.4-8.2)
[2016-05-27 11:04] LABS: BLOOD UREA NITROGEN 11 MG/DL (7-18); BUN/CREATININE RATIO 14
[2016-06-10 10:27] LABS: BASOPHILS % (AUTO) 1 % (0-10); EOSINOPHILS # (AUTO) 0.2 10^3/uL (0.0-0.3); EOSINOPHILS % (AUTO) 3 % (0-10); LYMPHOCYTES # (AUTO) 1.5 X 10^3 (1.0-4.0); LYMPHOCYTES % (AUTO) 25 % (12-44); MEAN CORPUSCULAR HEMOGLOBIN 29 PG (25-34); MEAN CORPUSCULAR HGB CONC 35 G/DL (32-36); MEAN CORPUSCULAR VOLUME 82 FL (80-99); MEAN PLATELET VOLUME 9.9 FL (7.4-10.4); MONOCYTES # (AUTO) 0.5 X 10^3 (0.0-1.0); MONOCYTES % (AUTO) 8 % (0-12); NEUTROPHILS # (AUTO) 3.9 X 10^3 (1.8-7.8); NEUTROPHILS % (AUTO) 64 % (42-75); PLATELET COUNT 220 10^3/uL (130-400); RED BLOOD COUNT 4.87 10^6/uL (4.35-5.85); WHITE BLOOD COUNT 6.2 10^3/uL (4.3-11.0)
[2016-06-10 11:00] LABS: ALANINE AMINOTRANSFERASE 18 U/L (0-55); ALBUMIN 4.1 G/DL (3.2-4.5); ANION GAP 10 MMOL/L (5-14); ASPARTATE AMINO TRANSFERASE 21 U/L (5-34); BILIRUBIN,TOTAL 0.4 MG/DL (0.1-1.0); BLOOD UREA NITROGEN 8 MG/DL (7-18); BUN/CREATININE RATIO 11; CALCIUM 9.2 MG/DL (8.5-10.1); CARBON DIOXIDE 26 MMOL/L (21-32); CHLORIDE 100 MMOL/L (98-107); CREATININE SERUM 0.75 MG/DL (0.60-1.30); GFR ESTIMATED > 60; GLUCOSE 105 MG/DL (70-105); SODIUM 136 MMOL/L (135-145); TOTAL PROTEIN 6.7 G/DL (6.4-8.2)
[~2016-06-16] VITALS: Ht 160 cm; Wt 58.5 kg
[~2016-06-16 14:06] MED LIST changes: +BEVACIZUMAB IV SCH; -GADOBUTROL 7.5 MMOL/7.5 ML (GADAVIST) VIAL IV ONE; +NS IV 500 ML (CANCER CENTER) 500 ML IV SCH; +[UNRECOGNIZED DRUG - OTHER] IV SCH
== END 2016-06-17 | disposition home or self-care (01) ==
LOC: ONC 14:06
PROVIDERS: ATTEND Internal Medicine Hematology & Oncology
DX: Z51.11 Encounter for antineoplastic chemotherapy (principal); C71.3 Malignant neoplasm of parietal lobe; E03.9 Hypothyroidism, unspecified; F17.210 Nicotine dependence, cigarettes, uncomplicated; Z79.899 Other long term (current) drug therapy
CPT/HCPCS: 36415; 80053; 81002; 82570; 84156; 84443; 85025; 96409; 96413; 99213

== ENCOUNTER → 2016-07-17 | Outpatient (CLI) | payer OTHER ==
[~2016-07-17] MED LIST changes: -BEVACIZUMAB IV SCH; -NS IV 500 ML (CANCER CENTER) 500 ML IV SCH; -[UNRECOGNIZED DRUG - OTHER] IV SCH
[2016-07-17 14:41] LABS: BASOPHILS % (AUTO) 1 % (0-10); EOSINOPHILS # (AUTO) 0.1 10^3/uL (0.0-0.3); EOSINOPHILS % (AUTO) 2 % (0-10); LYMPHOCYTES # (AUTO) 1.8 X 10^3 (1.0-4.0); LYMPHOCYTES % (AUTO) 24 % (12-44); MEAN CORPUSCULAR HEMOGLOBIN 28 PG (25-34); MEAN CORPUSCULAR HGB CONC 34 G/DL (32-36); MEAN CORPUSCULAR VOLUME 83 FL (80-99); MEAN PLATELET VOLUME 10.1 FL (7.4-10.4); MONOCYTES # (AUTO) 0.7 X 10^3 (0.0-1.0); MONOCYTES % (AUTO) 9 % (0-12); NEUTROPHILS # (AUTO) 5.1 X 10^3 (1.8-7.8); NEUTROPHILS % (AUTO) 66 % (42-75); PLATELET COUNT 238 10^3/uL (130-400); RED BLOOD COUNT 5.36 10^6/uL (4.35-5.85); RED CELL DISTRIBUTION WIDTH 14.3 % (10.0-14.5); WHITE BLOOD COUNT 7.8 10^3/uL (4.3-11.0)
[2016-07-17 14:49] LABS: INR 0.9 (0.8-1.4); PROTHROMBIN TIME PATIENT 12.1 SEC (12.2-14.7)
[2016-07-17 15:03] LABS: ALBUMIN 4.4 G/DL (3.2-4.5); BILIRUBIN,TOTAL 0.5 MG/DL (0.1-1.0); CALCIUM 9.5 MG/DL (8.5-10.1); CREATININE SERUM 1.06 MG/DL (0.60-1.30); POTASSIUM 3.6 MMOL/L (3.6-5.0); TOTAL PROTEIN 7.1 G/DL (6.4-8.2)
== END ==
LOC: LAB 14:06
PROVIDERS: ATTEND Internal Medicine Medical Oncology
DX: Z13.220 Encounter for screening for lipoid disorders (principal); C71.9 Malignant neoplasm of brain, unspecified
CPT/HCPCS: 36415; 80053; 80061; 85025; 85610; 85730